=== PATIENT | female | born 1990 | race Two or more races ===

== ENCOUNTER 2016-07-14 06:40 | Inpatient (IN) | payer MEDICAID ==
[~2016-07-14] VITALS: Ht 152.4 cm; Wt 62.9 kg
[2016-07-14] VITALS (7 sets, daily range): BP systolic 111–122; BP diastolic 59–78; PULSE 70–105; RESP 18–20; Ht 152.4 cm; Wt 62.9 kg
[2016-07-14] MEDS ORDERED: PRENAT PO (07:06)
[2016-07-14] MEDS ORDERED: LACTATED RINGER'S 1,000 ML IV SCH (07:22)
[2016-07-14] MEDS ORDERED: MISOPROSTOL 200 MCG TAB PR PRN ×2 (07:30→09:00)
[2016-07-14] MEDS ORDERED: OXYTOCIN 30 UNITS/LR 500 ML IV SCH ×2 (07:30)
[2016-07-14] MEDS ORDERED: CARBOPROST 250 MCG INJ IM PRN ×2 (07:30→09:00)
[2016-07-14] MEDS ORDERED: OXYTOCIN 30 UNITS/LR 500 ML IV PRN ×2 (07:30→09:00)
[2016-07-14] MEDS ORDERED: LACTATED RINGER'S 1,000 ML IV PRN (07:30)
[2016-07-14] MEDS ORDERED: IBUPROFEN 600 MG TAB PO PRN (07:30)
[2016-07-14] MEDS ORDERED: BUTORPHANOL 2 MG INJ IV PRN (07:30)
[2016-07-14] MEDS ORDERED: METHYLERGONOVINE 0.2 MG INJ IM PRN ×2 (07:30→09:00)
[2016-07-14] MEDS ORDERED: LIDOCAINE 1% (MPF) 30 ML INJ INJ PRN (07:30)
--- NOTE | 2016-07-14 07:41 | TRIAGE ---
OB Triage Datetime Report Generated by CPN: 07/14/2016 07:41 Datetime: 07/14/2016 07:13 Vaginal Exam Dilatation (cms): 6.5 Effacement (%): 90 Station: -1 Exam By: Ismael Tungate RN Vaginal Bleeding: Normal Show Cervix, Consistency: Soft Cervix, Position: Anterior Datetime: 07/14/2016 07:03 EGA: 39.0 Datetime: 07/14/2016 06:55 Vaginal Exam Dilatation (cms): 5.0 Membrane Status: Intact Datetime: 07/14/2016 06:51 Vaginal Exam Dilatation (cms): 5.0 Effacement (%): 90 Station: -1 Exam By: Ismael Stone RN Vaginal Bleeding: Normal Show Cervix, Consistency: Soft Cervix, Position: Midposition Presentation 'A': Cephalic Datetime: 07/14/2016 06:50 Time of Arrival: 07/14/2016 06:40 Arrived By: Wheelchair Arrived From: Home Chief Complaint: UC's since 0330 Movement: Present Contractions: Regular Time Contractions Began: 07/14/2016 03:30 Contractions: Every 5 minutes Rupture of Membranes: Denies Vaginal Bleeding: None Vaginal Discharge: Denies Recent Sexual Intercouse: Denies Abdominal Trauma: Not Applicable Patient Complaints: Contractions Initial Plan: CEFM, VE
--- NOTE | 2016-07-14 08:41 | HP ---
Date/Time of Note Date/Time of Note DATE: 07/14/16 TIME: 08:35 OB - History Hx of Present Free Text/Dictation 25 years old with IUP at 39 weeks with care at out side facility presented to Hospital with Complaint of pain ful contractions and was seen is in active labor. course was unremarkable. Records are available. GBS negative. She was noted to be 6 cm dilatated and rapidly progressed to complete/ Complete + 2 shortly after she was transferred to [facility] [place]. I was called for delivery as this was assigned to laborist after it was discussed with primary attending Dr. Magallon. Estimated Due Date: Jul 21, 2016 : 2 Para: 1 Spontaneous : 0 Therapeutic : 0 Care: Good Care Obstetrical Complications: None Medical Complications: None Past Family/Social History * Past Medical, Surgical, Family and Obstetric Histories reviewed from chart. Blood Type: O+ RPR/VDRL: Negative GBS Status: Negative HBsAG: Negative OB Admission Exam Vital Signs Vital Signs Vital Signs Date Time Temp Pulse Resp B/P Pulse Ox O2 Delivery O2 Flow Rate FiO2 07/14/16 07:07 98.0 105 18 122/78 Room Air Physical Exam HEENT: WNL Heart: Rhythm Normal Lungs: Clear Abdomen: WNL Cervical Dilatation: 6cm Effacement: 75% Station: 0 Membranes: Intact Heart Rate: 120's Accelerations: Accelerations Present Varibility: Moderate Contractions on Admission: < 5 Minutes Apart Intensity: Firm OB Assessment/Plan Reason for admission: active labor Other Assessment: Precipitous labor Active second stage of labor FHT Reassuring Starting pushing after AROM Anticipate BRIGITTE SHAH MD Jul 14, 2016 08:41
--- NOTE | 2016-07-14 08:45 | LDN ---
Date/Time of Note Date/Time of Note DATE: 07/14/16 TIME: 08:41 Delivery Summary Patient rapidly progressed to C/C/ +2 as she was transferred to [facility] and she was assigned to laborist for coverage by Dr. Magallon. FHT: Cat 1 tracing Placenta Delivered: Spontaneously Meconium: none Perineum intact?: No Perineal laceration: 1 Perineal laceration repair: first degree bilateral labial laceration repaired using 3-0 chormic Anesthesia type: None Sponge & Needle done & correct: Yes All needle counts correct: Yes Any foreign bodies felt in the: No Problems: Infant Delivery Information Sex Sex: male Apgars 1 Minute: 9 5 Minute: 9 Suctioning Nose & mouth suctioned at cherry: Yes Delee suction performed: Yes Umbilical Cord Cord presentations: no nuchal cord Cord Blood was obtained: Yes Mother & Baby Disposition Disposition Placenta delivered spontanously and was complete. Cord blood obtained, cord clamped after 1 min Baby was placed on abdomen after cutting the cord for bonding first degree labial laceration repaired using 3-0 chromic Fundus was firm at the end of delivery Mom & Baby to Maternity; Good: Yes Mom transferred to: Other Baby to NICU: No BRIGITTE SHAH MD Jul 14, 2016 08:45
[2016-07-14] MEDS ORDERED: ACETAMINOPHEN/CODEINE #3 TAB PO PRN (09:00)
[2016-07-14] MEDS ORDERED: DIPHENHYDRAMINE 25 MG CAP PO PRN (09:00)
[2016-07-14] MEDS ORDERED: ONDANSETRON 4 MG INJ IV PRN (09:00)
[2016-07-14] MEDS ORDERED: LANOLIN 7 GM TUBE TOP PRN (09:00)
[2016-07-14] MEDS ORDERED: ZOLPIDEM 5 MG TAB PO PRN (09:00)
[2016-07-14 09:31] LABS: INR 0.92; PROTIME 12.4 Sec (12.2-14.2)
[2016-07-14 09:32] LABS: PARTIAL THROMBOPLASTIN TIME 27.5 Sec (25.0-35.0)
[2016-07-14] MEDS: IBUPROFEN 600 MG TAB PO SCH ×4 (09:34→23:39)
--- NOTE | 2016-07-14 09:42 | DELSUM ---
Delivery Summary A-C Datetime Report Generated by CPN: 07/14/2016 09:42 DELIVERY PERSONNEL Spray Maker: Ordona, May MATERNAL INFORMATION Delivery Anesthesia: Local Medications in Delivery: LR WITH PITOCIN 30 UNITS Estimated Blood Loss (ml): 400 Placenta Cultured: No Maternal Complications: None LABOR SUMMARY EDC: 07/21/2016 00:00 No. Babies in Womb: 1 Attempted: No Labor Anesthesia: None LABOR INFORMATION Reason for Induction: Not Applicable Onset of Labor: 07/14/2016 03:00 Complete Dilatation: 07/14/2016 07:51 Oxytocin: N/A Group B Beta Strep: Negative Antibiotics # of Doses: 0 Antibiotics Time of Last Dose: 0 Steroids Given: None Reason Steroids Not Administered: Not Applicable MEMBRANES Membranes Rupture Method: Artificial Membranes Rupture Method: Artificial Rupture of Membranes: 07/14/2016 07:55 Length of Rupture (hr): 0.03 Amniotic Fluid Color: Clear Amniotic Fluid Color: Clear Amniotic Fluid Amount: Moderate Amniotic Fluid Amount: Moderate Amniotic Fluid Odor: None Amniotic Fluid Odor: None STAGES OF LABOR Stage 1 hr: 4 Stage 1 min: 51 Stage 2 hr: 0 Stage 2 min: 6 Stage 3 hr: 0 Stage 3 min: 9 Total Time in Labor hr: 5 Total Time in Labor min: 6 VAGINAL DELIVERY Episiotomy: None Laceration Extension: First Degree Laceration Type: Vaginal Laceration Repair: Yes Initial Vag Sponge Count: 20 Final Vag Sponge Count: 20 Initial Vag Sharps Count: 1 Final Vag Sharps Count: 2 Sponge Count Correct: Yes Sharps Count Correct: Yes BABY A INFORMATION Infant Delivery Date/Time: 07/14/2016 07:57 Method of Delivery: Vaginal Born in Route : No : N/A Forceps: N/A Vacuum Extraction: N/A Shoulder Dystocia : N/A SHOULDER DYSTOCIA BABY A Delivery Date/Time: 07/14/2016 07:57 PRESENTATION/POSITION BABY A Presentation: Cephalic Presentation: Cephalic Cephalic Presentation: Vertex Vertex Position: Right Occipital Anterior Breech Presentation: N/A PLACENTA INFORMATION BABY A Placenta Delivery Time : 07/14/2016 08:06 Placenta Method of Delivery: Spontaneous Placenta Status: Delivered SCORES BABY A Heart Rate 1 min: >100 bpm Resp Effort 1 min: Good Cry Reflex Irritability 1 min: Cough/Sneeze/Pulls Away Muscle Tone 1 min: Active Motion Color 1 min: Body [place]une[place], Extremit Blue Resuscitation Effort 1 min: Tactile Stimulation SCORE 1 MIN: 9 Heart Rate 5 min: >100 bpm Resp Effort 5 min: Good Cry Reflex Irritability 5 min: Cough/Sneeze/Pulls Away Muscle Tone 5 min: Active Motion Color 5 min: Body [place], Extremit Blue Resuscitation Effort 5 min: Tactile Stimulation SCORE 5 MIN: 9 INFANT INFORMATION BABY A Gestational Age at Delivery: 39.0 Gestational Status: Full Term- 39- 40.6 Weeks Infant Outcome : Liveborn Infant Condition : Stable Infant Sex: Male IDENTIFICATION/MEDS BABY A ID Band Number: [id number] ID Band Location: Right Leg; Left Arm Sensor Applied: Yes Sensor Number: [id number] Sensor Location : Cord Clamp Vitamin K Given : Not Given Erythromycin Given: Not Given WEIGHT/LENGTH BABY A Infant Birthweight (gm): 3165 Weight (lb): 7 Weight (oz): 0 Length (in): 18.50 Length (cm): 46.99 CORD INFORMATION BABY A No. Cord Vessels: 3 Nuchal Cord : N/A Cord Blood Taken: Yes Infant Suction: Mouth; Nose ASSESSMENT BABY A Complications: None Respirations: Appears Normal Supervisor Esters And Emulsifiers/ALS Called : No Infant Care By: MELVA PIERRE Transferred To: Remains with Mother
--- NOTE | 2016-07-14 09:59 | DELSUM ---
Delivery Summary A-C Datetime Report Generated by CPN: 07/14/2016 09:59 DELIVERY PERSONNEL Care Analyst: Ordona, May MATERNAL INFORMATION Delivery Anesthesia: Local Medications in Delivery: LR WITH PITOCIN 30 UNITS Estimated Blood Loss (ml): 400 Placenta Cultured: No Maternal Complications: None LABOR SUMMARY EDC: 07/21/2016 00:00 No. Babies in Womb: 1 Attempted: No Labor Anesthesia: None LABOR INFORMATION Reason for Induction: Not Applicable Onset of Labor: 07/14/2016 03:00 Complete Dilatation: 07/14/2016 07:51 Oxytocin: N/A Group B Beta Strep: Negative Antibiotics # of Doses: 0 Antibiotics Time of Last Dose: 0 Steroids Given: None Reason Steroids Not Administered: Not Applicable MEMBRANES Membranes Rupture Method: Artificial Membranes Rupture Method: Artificial Rupture of Membranes: 07/14/2016 07:55 Length of Rupture (hr): 0.03 Amniotic Fluid Color: Clear Amniotic Fluid Color: Clear Amniotic Fluid Amount: Moderate Amniotic Fluid Amount: Moderate Amniotic Fluid Odor: None Amniotic Fluid Odor: None STAGES OF LABOR Stage 1 hr: 4 Stage 1 min: 51 Stage 2 hr: 0 Stage 2 min: 6 Stage 3 hr: 0 Stage 3 min: 9 Total Time in Labor hr: 5 Total Time in Labor min: 6 VAGINAL DELIVERY Episiotomy: None Laceration Extension: First Degree Laceration Type: Vaginal Laceration Repair: Yes Initial Vag Sponge Count: 20 Final Vag Sponge Count: 20 Initial Vag Sharps Count: 1 Final Vag Sharps Count: 2 Sponge Count Correct: Yes Sharps Count Correct: Yes BABY A INFORMATION Infant Delivery Date/Time: 07/14/2016 07:57 Method of Delivery: Vaginal Born in Route : No : N/A Forceps: N/A Vacuum Extraction: N/A Shoulder Dystocia : N/A SHOULDER DYSTOCIA BABY A Delivery Date/Time: 07/14/2016 07:57 PRESENTATION/POSITION BABY A Presentation: Cephalic Presentation: Cephalic Cephalic Presentation: Vertex Vertex Position: Right Occipital Anterior Breech Presentation: N/A PLACENTA INFORMATION BABY A Placenta Delivery Time : 07/14/2016 08:06 Placenta Method of Delivery: Spontaneous Placenta Status: Delivered SCORES BABY A Heart Rate 1 min: >100 bpm Resp Effort 1 min: Good Cry Reflex Irritability 1 min: Cough/Sneeze/Pulls Away Muscle Tone 1 min: Active Motion Color 1 min: Body [place], Extremit Blue Resuscitation Effort 1 min: Tactile Stimulation SCORE 1 MIN: 9 Heart Rate 5 min: >100 bpm Resp Effort 5 min: Good Cry Reflex Irritability 5 min: Cough/Sneeze/Pulls Away Muscle Tone 5 min: Active Motion Color 5 min: Body [place], Extremit Blue Resuscitation Effort 5 min: Tactile Stimulation SCORE 5 MIN: 9 INFANT INFORMATION BABY A Gestational Age at Delivery: 39.0 Gestational Status: Full Term- 39- 40.6 Weeks Infant Outcome : Liveborn Infant Condition : Stable Infant Sex: Male IDENTIFICATION/MEDS BABY A ID Band Number: [id number] ID Band Location: Right Leg; Left Arm Sensor Applied: Yes Sensor Number: [id number] Sensor Location : Cord Clamp Vitamin K Given : Not Given Erythromycin Given: Not Given WEIGHT/LENGTH BABY A Infant Birthweight (gm): 3165 Weight (lb): 7 Weight (oz): 0 Length (in): 18.50 Length (cm): 46.99 CORD INFORMATION BABY A No. Cord Vessels: 3 Nuchal Cord : N/A Cord Blood Taken: Yes Infant Suction: Mouth; Nose ASSESSMENT BABY A Complications: None Respirations: Appears Normal Real Estate Listing Consultant/ALS Called : No Infant Care By: MELVA PIERRE Transferred To: Remains with Mother
[2016-07-14] MEDS: SENNA/DOCUSATE NA (8.6MG/50MG) TAB PO SCH ×2 (10:33→21:24)
[2016-07-14] MEDS: MULTIVIT/MIN/FOLATE/IRON/PREN TAB PO SCH (10:33)
[2016-07-14] MEDS: WITCH HAZEL/GLYCERIN PAD PR PRN (10:33)
[2016-07-14 11:03] LABS: BASOPHILS % 0.2 % (0.0-2.0); EOSINOPHILS % 0.3 % (0.0-7.0); HEMATOCRIT 37.3 % (37.0-47.0); HEMOGLOBIN 12.3 g/dl (12.0-16.0); LYMPHOCYTES # 3.9 10^3/ul (0.8-2.9); LYMPHOCYTES % 24.5 % (15.0-51.0); MEAN CORPUSCULAR HEMOGLOBIN 27.2 pg (29.0-33.0); MEAN CORPUSCULAR HGB CONC 32.8 g/dl (32.0-37.0); MEAN CORPUSCULAR VOLUME 82.8 fl (82.0-101.0); MEAN PLATELET VOLUME 13.1 fl (7.4-10.4); MONOCYTES % 6.4 % (0.0-11.0); NEUTROPHIL # 10.9 10^3/ul (1.6-7.5); NEUTROPHILS % 68.6 % (39.0-77.0); RED BLOOD COUNT 4.51 10^6/ul (4.20-5.40); RED CELL DISTRIBUTION WIDTH 14.6 % (11.5-14.5); UNCORRECTED WBC 15.9 10^3/ul (4.8-10.8); WHITE BLOOD COUNT 15.9 10^3/ul (4.8-10.8)
[2016-07-14 11:06] LABS: CONDITION 1; LH ANALYZER COMMENTS 1; PLATELET COUNT 197 10^3/UL (140-440); SUSPECT 1
[2016-07-14] MEDS: LACTATED RINGER'S 1,000 ML IV* SCH ×2 (12:15→19:32)
[2016-07-14] MEDS: BENZOCAINE 20% 56 ML SPRAY TOP PRN (12:15)
[2016-07-15 00:15] VITALS: BP 128/69; PULSE 89; RESP 19
[2016-07-15] MEDS: LACTATED RINGER'S 1,000 ML IV* SCH (00:45)
[2016-07-15 04:00] VITALS: BP 110/70; PULSE 66; RESP 18
[2016-07-15] MEDS: IBUPROFEN 600 MG TAB PO SCH ×4 (05:45→23:31)
[2016-07-15 08:00] VITALS: BP 107/61; PULSE 79; RESP 18
[2016-07-15] MEDS: SENNA/DOCUSATE NA (8.6MG/50MG) TAB PO SCH ×2 (08:17→21:34)
[2016-07-15] MEDS: MULTIVIT/MIN/FOLATE/IRON/PREN TAB PO SCH (08:17)
[2016-07-15] MEDS ORDERED: INFLUENZA VIRUS VACCINE 0.5 ML (DISPENSING) IM* ONE (09:00)
[2016-07-15 09:28] LABS: BASOPHILS % 0.3 % (0.0-2.0); EOSINOPHILS # 0.1 10^3/ul (0.0-0.5); EOSINOPHILS % 0.7 % (0.0-7.0); HEMOGLOBIN 10.8 g/dl (12.0-16.0); LYMPHOCYTES # 3.9 10^3/ul (0.8-2.9); LYMPHOCYTES % 28.8 % (15.0-51.0); MEAN CORPUSCULAR HEMOGLOBIN 27.8 pg (29.0-33.0); MEAN CORPUSCULAR HGB CONC 33.6 g/dl (32.0-37.0); MEAN CORPUSCULAR VOLUME 82.8 fl (82.0-101.0); MEAN PLATELET VOLUME 11.6 fl (7.4-10.4); MONOCYTE # 1.3 10^3/ul (0.3-0.9); MONOCYTES % 9.4 % (0.0-11.0); NEUTROPHIL # 8.2 10^3/ul (1.6-7.5); NEUTROPHILS % 60.8 % (39.0-77.0); PLATELET COUNT 163 10^3/UL (140-440); RED BLOOD COUNT 3.87 10^6/ul (4.20-5.40); RED CELL DISTRIBUTION WIDTH 14.8 % (11.5-14.5); UNCORRECTED WBC 13.6 10^3/ul (4.8-10.8); WHITE BLOOD COUNT 13.6 10^3/ul (4.8-10.8)
[2016-07-15 09:39] LABS: CONDITION 1; LH ANALYZER COMMENTS 1; SUSPECT 1
[2016-07-15 15:34] VITALS: BP 108/62; PULSE 77; RESP 18
--- NOTE | 2016-07-15 15:53 | DS ---
Date/Time of Note Date/Time of Note DATE: 07/15/16 TIME: 15:52 Discharge Summary Admission/Discharge Info Admit Date/Time Jul 14, 2016 at 07:00 Discharge Date/Time Final Diagnosis term preg Hospital Course unremarkable Home Meds Reported Medications Multivit/Min/Fol Ac/Iron/Pren* ( S*) 1 Tab Tab, 1 TAB PO DAILY, TAB 07/14/16 Pending Labs Laboratory Tests Test 07/15/16 08:46 Basophils # 0.010^3/ul (0.0-0.1) Basophils % 0.3% (0.0-2.0) Blood Morphology Comment Eosinophils # 0.110^3/ul (0.0-0.5) Eosinophils % 0.7% (0.0-7.0) Hematocrit 32.0% (37.0-47.0) Hemoglobin 10.8g/dl (12.0-16.0) Lymphocytes # 3.910^3/ul (0.8-2.9) Lymphocytes % 28.8% (15.0-51.0) Mean Corpuscular Hemoglobin 27.8pg (29.0-33.0) Mean Corpuscular Hemoglobin Concent 33.6g/dl (32.0-37.0) Mean Corpuscular Volume 82.8fl (82.0-101.0) Mean Platelet Volume 11.6fl (7.4-10.4) Monocytes # 1.310^3/ul (0.3-0.9) Monocytes % 9.4% (0.0-11.0) Neutrophils # 8.210^3/ul (1.6-7.5) Neutrophils % 60.8% (39.0-77.0) Nucleated Red Blood Cells # 0.010^3/ul (0.0-0.0) Nucleated Red Blood Cells % 0.0/100WBC (0.0-0.0) Platelet Count 10195^3/UL (140-440) Red Blood Count 3.8710^6/ul (4.20-5.40) Red Cell Distribution Width 14.8% (11.5-14.5) White Blood Count 13.610^3/ul (4.8-10.8) LITO CAMPBELL MD Jul 15, 2016 15:52
--- NOTE | 2016-07-15 15:54 | PD.PPDC ---
[facility]INO [facility] Discharge Instruction Condition Patient Condition: Good Diet Diet: Resume Regular Diet Activity/Restrictions Activity: Normal Activity May Shower Restrictions: No Exercising No Lifting No Driving No Sexual Activity Nothing in the Vagina No [place] No Tampons, douche Wound/Drain Care Instructions Wound/Drain Care Instructions: Wash with soap and water Keep clean and dry Follow-up Follow-up with Physician: 3, Week/Weeks Return to clinic for SHEET MANAGER Instructions: Fever greater than 101 Chills Worsening abdominal pain Excessive Vaginal Bleeding More than 2 pads per hour Unable to tolerate diet OB Instructions: Breast Tenderness Depression Blurried Vision Headache Surgical Instructions: Incisional Drainage Incisional Redness LITO CAMPBELL MD Jul 15, 2016 15:53
[2016-07-15 19:45] VITALS: BP 121/70; PULSE 84; RESP 19
[2016-07-16 03:50] VITALS: BP 105/62; PULSE 72; RESP 19
[2016-07-16] MEDS: IBUPROFEN 600 MG TAB PO SCH ×2 (05:44→12:23)
[2016-07-16 07:30] VITALS: BP 104/57; PULSE 74; RESP 20
[2016-07-16 07:45] VITALS: BP 101/58; PULSE 82; RESP 18
[2016-07-16] MEDS ORDERED: DIPHTH/TET/ACEL PERTUSS (ADULT) 0.5 ML VIAL IM* ONE (09:00)
[2016-07-16] MEDS ORDERED: VARICELLA VACCINE LIVE/PF 1,350 UNIT/0.5 ML ML SC* ONE (09:00)
[2016-07-16] MEDS ORDERED: MEASLES,MUMPS,RUBELLA VACCINE INJ SC* ONE (09:00)
[2016-07-16] MEDS: SENNA/DOCUSATE NA (8.6MG/50MG) TAB PO SCH (09:20)
[2016-07-16] MEDS: MULTIVIT/MIN/FOLATE/IRON/PREN TAB PO SCH (09:20)
[2016-07-16] MEDS: BENZOCAINE 20% 56 ML SPRAY TOP PRN (12:23)
[2016-07-16] MEDS: WITCH HAZEL/GLYCERIN PAD PR PRN (12:23)
== END 2016-07-16 17:33 | disposition home or self-care (01) | DRG 775 ==
LOC: OBT 06:40 → L-D 06:40 → OBT 07:00 → PP1 10:15
PROVIDERS: ADMIT Obstetrics & Gynecology; ATTEND Obstetrics & Gynecology
PROC: 10E0XZZ Delivery of Products of Conception, External Approach (ICD-10-PCS; principal; 2016-07-14)
PROC: 0HQ9XZZ Repair Perineum Skin, External Approach (ICD-10-PCS; 2016-07-14)
DX: O70.0 First degree perineal laceration during delivery (principal); Z37.0 Single live birth; Z3A.39 39 weeks gestation of pregnancy
CPT/HCPCS: 85025; 85610; 85730; 86592; 86900; 86901; 90686; 90715; 90716; G0463; J2590; J7120